=== PATIENT | female | born 1960 | race Caucasian/White ===

== ENCOUNTER 2019-10-04 16:14 | Emergency (ER) | payer MEDICAID ==
[2019-10-04] MEDS ORDERED: SULFAMETH/TRIMETH DS 800/160 MG TABLET PO STA (16:57)
--- NOTE | 2019-10-04 17:09 | ED Physician Documentation ---
PD HPI SKIN - Stated complaint Stated Complaint: LT LEG BUG BITE/PURPLE - Chief complaint Chief Complaint: Wound - History obtained from History obtained from: Patient - Additional information Additional information: Patient comes emergency department complaining of what she believes is a bug bite to her left inner thigh. Patient states that this is been getting worse for the last 3 days and that she is concerned that she may have a spider bite. Patient denies fevers or chills. She states that she does not have any other lesions anywhere else. No other complaints at this time. Review of Systems Ten Systems: 10 systems reviewed and negative Constitutional: reports: Reviewed and negative Eyes: reports: Reviewed and negative Ears: reports: Reviewed and negative Nose: reports: Reviewed and negative Throat: reports: Reviewed and negative Cardiac: reports: Reviewed and negative Respiratory: reports: Reviewed and negative GI: reports: Reviewed and negative : reports: Reviewed and negative Skin: reports: Lesions Musculoskeletal: reports: Reviewed and negative Neurologic: reports: Reviewed and negative Psychiatric: reports: Reviewed and negative Endocrine: reports: Reviewed and negative Immunocompromised: reports: Reviewed and negative PD PAST MEDICAL HISTORY - Present Medications Home Medications: Ambulatory Orders Medication Instructions Recorded Confirmed Sulfamethox/Trimeth 800/160 1 each PO BID #14 tablet 10/04/19 [Bactrim Ds 800/160] - Allergies Allergies/Adverse Reactions: Allergies Allergy/AdvReac Type Severity Reaction Status Date / Time Penicillins Allergy Anaphylaxis Verified 10/04/19 16:20 - Social History Does the pt smoke?: No Smoking Status: Never smoker PD ED PE NORMAL - Vitals Vital signs reviewed: Yes - General General: Alert and oriented X 3, No acute distress - HEENT HEENT: Atraumatic, PERRL, EOMI, Moist mucous membranes - Neck Neck: Supple, no meningeal sign - Respiratory Respiratory: No respiratory distress - Derm Derm: Warm and dry, Other (6 cm diameter area of erythema the patient's left medial superior most thigh. Approximately 3 cm diameter area of induration centrally located with skin breakage and purple discoloration. Small amount of thick, dark blood draining centrally. Very tender.) - Extremities Extremities: No deformity - Neuro Neuro: Alert and oriented X 3 - Psych Psych: Normal mood, Normal affect Results - Vitals Vitals: Oxygen O2 Source Room air PD MEDICAL DECISION MAKING - ED course Complexity details: considered differential, d/w patient, d/w family ED course: I discussed with the patient that at this point in time, she has a very small area of induration with most likely, a smaller, centrally located area of hemorrhage or purulent material. At this point, I have given her the option of antibiotics and hot packing at home, given the likely small size of any pus collection versus I&D here in the emergency department. The patient has had difficulty tolerating my exam and has repeatedly tried to bat my hand away from the area. I have discussed with her that if I am to perform an I&D, I cannot have her doing this as it is not safe for either her or myself. I do feel that given the small size of the actual area of induration, that there is a good chance that with hot packing and antibiotics, this would clear up on its own. However, I discussed with the patient that if she goes with this option, if she notices that after 3 days of antibiotics her erythema is not improving or is worsening, she will need to return to the emergency department for I&D. The patient was given time to think about the options and discuss with her friend, who accompanied her. The patient ultimately decided that she would like to try antibiotics and hot packing first. We have discussed that she should hot pack several times a day for 20 to 30 minutes. We have discussed the usual indications for return, as well. The patient was given a dose of Bactrim here in the emergency department. Departure - Departure Disposition: 01 Home, Self Care Clinical Impression: Abscess Cellulitis Qualifiers: Site of cellulitis: extremity Site of cellulitis of extremity: lower extremity Laterality: left Qualified Code(s): L03.116 - Cellulitis of left lower limb Condition: Stable Instructions: Cellulitis Dc Prescriptions: Sulfamethox/Trimeth 800/160 [Bactrim Ds 800/160] 1 each PO BID #14 tablet Comments: It is not clear what caused the infection you have, though a bug bite, spider or otherwise, certainly may have started this. You have opted for now to take antibiotics and hot pack. Given the fairly small size of the actual Firm area itself, there is most likely a fairly small amount of pus which has a good chance of responding to antibiotics. However, if you do not notice any improvement after the next 3 days, or if you notice that the redness is spreading and getting worse, then you will need to return to the emergency department and most likely have the area lanced. Please apply apply either a hot, wet towel or washcloth to the area for 20 to 30 minutes at a time, 4 times a day, or soak the area in the hottest water you can stand for 20 to 30 minutes at a time 4 hours a day, every day. This will help encouraged drainage of pus. Discharge Date/Time: 10/04/19 17:29
[2019-10-04 17:30] VITALS: BP 128/66
== END 2019-10-04 17:29 | disposition home or self-care (01) ==
LOC: ED 16:14
DX: L02.416 Cutaneous abscess of left lower limb (principal); L03.116 Cellulitis of left lower limb
CPT/HCPCS: 99282; 99283; A9270